=== PATIENT | female | born 1955 | race Caucasian/White ===

== ENCOUNTER 2019-11-07 21:44 | Emergency (ER) | payer MEDICAID, MEDICARE ==
[~2019-11-07] VITALS: Ht 157.5 cm; Wt 74.8 kg
--- NOTE | 2019-11-07 22:35 | NUR ---
ED Nurse Note: Recieved pt from home, here wtih c/o dizziness and "not feeling right" x 1 day, denies fevers, nausea, vomiting, cough or any other complaints, states is taking care of 3yr old whom has a virus, pt has intermittent dizziness, no blurred vision or headache or chest pain, b/p wnl.
--- NOTE | 2019-11-07 23:23 | Diagnostic Imaging Report ---
Indication: Dizziness, lightheadedness Technique: Contiguous 5 mm thick transaxial imaging of the head obtained in a Siemens Sensation [address] scanner. Soft tissue and bone windows generated. Automatic Exposure Control was utilized. Total Dose length Product (DLP): 1318.[address] Dose Index Volume (CTDIvol): 62.7 mGy Comparison: none Findings: Mild, patchy, white matter hypoattenuation is noted throughout the brain. Findings are nonspecific but may be due to chronic small vessel disease. This is most predominant within the frontal regions especially on the right. There is no midline shift, edema, acute hemorrhage, mass effect, or abnormal extra-axial fluid collections. Bones and extra osseous soft tissues are unremarkable. Impression: No acute intracranial bleed, mass effect or edema. Nonspecific white matter hypoattenuation which may be due to chronic small vessel disease. [facility] has communicated the preliminary results to the Emergency Department. Their findings are largely concordant with this report. The CT scanner at [facility] is accredited by the [employer] and the scans are performed using dose optimization techniques as appropriate to a performed exam including Automatic Exposure control.
[2019-11-07 23:35] VITALS: BP 128/88
[2019-11-07] MEDS ORDERED: MECLIZINE HCL12.5 MG ORAL (23:36)
--- NOTE | 2019-11-07 23:37 | Emergency Room Report ---
History of Present Illness General Chief Complaint: General Complaint Source: Patient Present Illness HPI This is a 64-year-old female with no past medical history. She presents with complaint of dizziness. She said he was at work washing the dishes and all of a sudden she had this funny sensation in her body and head. She felt like she is going to fall. She described it as spinning sensation. She says she had this problem before but usually did not last this long. No fever chills but no focal deficit. No slurred speech. Denies any other complaint. She felt better now. Able to drive here without any problem. Allergies: Coded Allergies: No Known Allergies (Unverified , 11/07/19) Patient History Past Medical History: see triage record, old chart reviewed Past Surgical History: none Pertinent Family History: none Social History: Denies: smoking Last Menstrual Period: na Now: No : 4 Para: 2 Immunizations: other Reviewed Nursing Documentation: PMH: Agreed; PSxH: Agreed Nursing Documentation-PMH Past Medical History: No Stated History Review of Systems Eye: Denies: eye pain, blurred vision ENT: Denies: ear pain, nose congestion, throat swelling Respiratory: Denies: cough, shortness of breath Cardiovascular: Denies: chest pain, palpitations Gastrointestinal: Denies: abdominal pain, diarrhea, nausea, vomiting Musculoskeletal: Denies: back pain, joint pain Skin: Denies: rash Neurological: Reports: dizziness; Denies: headache, numbness Endocrine: Denies: increased thirst, increased urine Hematologic/Lymphatic: Denies: easy bruising All Other Systems: negative except mentioned in HPI Physical Exam Vital Signs Date Time Temp Pulse Resp B/P (MAP) Pulse Ox O2 Delivery O2 Flow Rate FiO2 11/07/19 22:08 97.9 76 18 137/90 (106) 97 Room Air Vitals unremarkable Sp02 EP Interpretation: reviewed, normal General Appearance: well appearing, no apparent distress, alert Head: normocephalic, atraumatic Eyes: bilateral eye PERRL, bilateral eye EOMI ENT: hearing grossly normal, normal pharynx Neck: full range of motion, supple, no meningismus Respiratory: chest non-tender, lungs clear, normal breath sounds Cardiovascular #1: regular rate, rhythm, no murmur Gastrointestinal: normal bowel sounds, non tender, no mass, no organomegaly, no bruit, non-distended Musculoskeletal: back normal, normal range of motion, gait/station normal Psychiatric: mood/affect normal Medical Decision Making Diagnostic Impression: Primary Impression: Vertigo Additional Impression: Dizziness of unknown etiology ER Course Patient with dizziness. No evidence of central vertigo. No evidence of TIA or CVA. CT/MRI/US Diagnostic Results CT/MRI/US Diagnostic Results : Imaging Test Ordered: CT head Impression Negative per radiologist Last Vital Signs Date Time Temp Pulse Resp B/P (MAP) Pulse Ox O2 Delivery O2 Flow Rate FiO2 11/07/19 22:08 97.9 76 18 137/90 (106) 97 Room Air Status: improved Disposition: HOME, SELF-CARE Condition: Stable Scripts Meclizine Hcl* (MECLIZINE*) 12.5 Mg Tablet 12.5 MG ORAL THREE TIMES A DAY, #30 TAB Prov: Lester Harmon MD 11/07/19 Additional Instructions: May take up to 2 pills of meclizine as needed for dizziness. Follow-up with your doctor in 7 days for recheck if not better. Return if worse. Lester Harmon MD Nov 07, 2019 23:37
[2019-11-07 23:50] VITALS: BP 128/88
--- NOTE | 2019-11-07 23:50 | NUR ---
ER DISCHARGE NOTE: Patient is cleared to be discharged per ERMD, pt is aox4, on room air, with stable vital signs. pt was given dc and prescription instructions, pt was able to verbalize understanding, pt id band removed without complications. pt is able to ambulate with steady gait. pt took all belongings.
== END 2019-11-07 23:50 | disposition home or self-care (01) ==
LOC: EMR 23:00
DX: R42 Dizziness and giddiness (principal)
CPT/HCPCS: 70450; 99284